=== PATIENT | female | born 1975 | race Caucasian/White ===

== ENCOUNTER → 2016-08-30 | Outpatient (CLI) | payer OTHER | LOC: FIMAGING 19:19 | PROVIDERS: ATTEND Family Medicine | DX: H57.02 Anisocoria (principal); R51 Headache ==

== ENCOUNTER → 2016-10-14 | Outpatient (CLI) | payer OTHER ==
[~2016-10-14] MED LIST: LIDOCAINE 1% 30 ML SDV ONE; NA BICARBONATE 50 MEQ/50 ML VIAL ONE
[2016-10-14 13:41] LABS: PROTEIN, CSF 24 mg/dL (12-60)
[2016-10-14 13:46] LABS: CSF APPEARANCE CLEAR (CLEAR); CSF COLOR COLORLESS (COLORLESS); WBC, CSF 0 /mm3 (0-5)
== END ==
LOC: FIMAGING 10:55
PROVIDERS: ATTEND Internal Medicine Infectious Disease
PROC: 009U3ZX Drainage of Spinal Canal, Percutaneous Approach, Diagnostic (ICD-10-PCS; principal; 2016-10-14)
DX: R51 Headache (principal)

== ENCOUNTER → 2017-01-12 | Outpatient (CLI) | payer OTHER | LOC: CIMAGING 14:14 | PROVIDERS: ATTEND Family Medicine | DX: S91.332A Puncture wound without foreign body, left foot, initial encounter (principal) | CPT/HCPCS: 73630-PO ==

== ENCOUNTER → 2017-01-25 | Outpatient (CLI) | payer OTHER | LOC: CIMAGING 14:40 | PROVIDERS: ATTEND Orthopaedic Surgery | DX: S90.852D Superficial foreign body, left foot, subsequent encounter (principal) | CPT/HCPCS: 76882-PO ==

== ENCOUNTER 2017-11-14 20:53 | Emergency (ER) | payer OTHER ==
--- NOTE | 2017-11-14 21:40 | EDPHY ---
H & P Stated Complaint: LLQ pain for 3 days Time Seen by Provider: 11/14/17 21:09 HPI/ROS: 42-year-old female presents complaining of left lower quadrant pain/left adnexal pain sharp and stabbing in nature for approximately 3 days. She denies nausea, vomiting, diarrhea, fevers, chills, constipation. Her menses began this morning, light flow. She states over the last several months her menses has been irregular she believes she would be due for her period in about 1 week, she denies having cramps on a regular basis with her menses. She states this feels similar to when she had a hemorrhagic ovarian cyst that required laparoscopic surgery in the past. Prior abdominal surgery-appendectomy Review of systems As per HPI General no fever no chills no weakness HEENT no eye pain no eye discharge. No eye redness, no sore throat Respiratory no cough, no shortness of breath Cardiac no chest pain, no peripheral edema GI positive adnexal/abdominal left lower quadrant pain , no diarrhea, no constipation, no nausea, no vomiting no flank pain, no hematuria, no dysuria Musculoskeletal no myalgias, no joint pain Heme no easy bruising, no easy bleeding Endo no polyuria, no polydipsia Skin no rashes, no pruritus Neuro no syncope, no dizziness, no headaches Psych is no suicidal ideation, no homicidal ideation Source: Patient Exam Limitations: No limitations - Personal History LMP (Females 10-55): Now Current Tetanus Diphtheria and Acellular Pertussis (TDAP): Yes Tetanus Vaccine Date: 2016 - Medical/Surgical History Hx Asthma: No Hx Chronic Respiratory Disease: No Hx Diabetes: No Hx Cardiac Disease: No Hx Renal Disease: No Hx Cirrhosis: No Hx Alcoholism: No Hx HIV/AIDS: No Hx Splenectomy or Spleen Trauma: No Other PMH: neck surgery,ruptured ovarian cyst,appy - Family History Significant Family History: No pertinent family hx - Social History Smoking Status: Never smoked Alcohol Use: None Drug Use: None - Physical Exam Exam: 42-year-old female alert and oriented no acute distress nontoxic appearance, afebrile HEENT atraumatic normocephalic, extraocular muscles intact, anicteric Oropharynx negative for erythema negative exudate, tolerating her own secretions Neck supple no meningismus Lungs clear to auscultation bilaterally Heart regular rate and rhythm without murmur rub or gallop Abdomen nondistended normoactive bowel sounds , positive left lower quadrant and left adnexal tenderness No rebound, no guarding Back no CVA tenderness, no step-offs, no spinal tenderness Extremities no cyanosis clubbing or edema Neuro alert and oriented, no focal deficits Constitutional: Initial Vital Signs Temperature (C) 36.7 C 11/14/17 21:18 Heart Rate 71 11/14/17 21:18 Respiratory Rate 16 11/14/17 21:18 Blood Pressure 129/70 H 11/14/17 21:18 O2 Sat (%) 98 11/14/17 21:18 O2 Delivery Mode Room Air Allergies/Adverse Reactions: Penicillins Allergy (Verified 11/14/17 22:00) Home Medications: Medication Instructions Recorded Docusate Sodium [Colace 100 MG (*)] 100 mg PO BID #30 cap 11/14/17 oxyCODONE/APAP 5/325 [Percocet 1 - 2 tab PO Q8H PRN #12 tab 11/14/17 5/325 (*)] Medical Decision Making ED Course/Re-evaluation: Patient seen and evaluated for left abdominal/pelvic pain of approximately 3 days duration, intermittent in nature. Additionally her menses began today. Exam significant for localized tenderness in the left adnexal area. Labs CBC normal CMP wnl Beta-hCG neg Urinalysis neg for infctn Pelvic ultrasound ovarian cyst, no torsion Imp Left adnexal pain, secondary to ovarian cyst Plan Home Short term pain medication Follow up with gynecology or pcp Differential Diagnosis: Differential diagnosis considered but not limited to and in no particular: Urinary tract infection, pelvic inflammatory disease, endometriosis, ovarian cyst, ovarian torsion, tubo-ovarian abscess, dysmenorrhea - Data Points Laboratory Results: Laboratory Results 11/14/17 21:55 11/14/17 21:55 Medications Given: Discontinued Medications Sodium Chloride (Ns) 1,000 mls @ 0 mls/hr IV ONCE ONE PRN Reason: Wide Open Stop: 11/14/17 21:51 Last Admin: 11/14/17 22:08 Dose: 1,000 mls Ketorolac Tromethamine (Toradol) 30 mg IVP ONCE ONE Stop: 11/14/17 21:51 Last Admin: 11/14/17 22:07 Dose: 30 mg Morphine Sulfate (Morphine) 4 mg IVP EDNOW ONE Stop: 11/14/17 23:22 Last Admin: 11/14/17 23:30 Dose: 4 mg Oxycodone/Acetaminophen (Percocet 5/325mg Prepack#4) 1 btl TAKEHOME EDNOW ONE Stop: 11/14/17 23:34 Last Admin: 11/14/17 23:44 Dose: 1 btl Departure - Departure Disposition: Home, Routine, Self-Care Clinical Impression: Ovarian cyst Condition: Good Instructions: Ovarian Cyst (ED) Additional Instructions: Follow up with your clothes model if you continue to have pain Narcotics can cause constipation , be sure to drink plenty of fluids, eat fiber and consider a stool softener. Referrals: Betsy Rose [Primary Care Provider] - As per Instructions Prescriptions: Docusate Sodium [Colace 100 MG (*)] 100 mg PO BID #30 cap oxyCODONE/APAP 5/325 [Percocet 5/325 (*)] 1 - 2 tab PO Q8H PRN #12 tab PRN Reason: Pain, Severe
[2017-11-14] MEDS ORDERED: NS 1,000 ML IV ONE (21:50)
[2017-11-14] MEDS ORDERED: KETOROLAC 30 MG/1 ML SDV IVP ONE (21:50)
[2017-11-14 22:01] LABS: PLATELET COUNT 209 10^3/uL (150-400)
[2017-11-14] MEDS ORDERED: OXYCODONE/APAP 5/325MG PREPACK#4 BTL TAKEHOME ONE (23:33)
[2017-11-15] VITALS: BP 115/76
== END 2017-11-14 23:58 | disposition home or self-care (01) ==
LOC: CED 20:53
DX: N83.202 Unspecified ovarian cyst, left side (principal)
CPT/HCPCS: 76856-PO; 80053-PO; 81003-PO; 81015-PO; 84703-PO; 85025-PO; 96374; J1885; J2270

== ENCOUNTER 2017-12-24 14:49 | Emergency (ER) | payer OTHER ==
[2017-12-24] MEDS ORDERED: ONDANSETRON 4 MG/2 ML VIAL ONE (15:00)
[2017-12-24] MEDS ORDERED: HYDROmorphONE/DILAUDID 1 MG/ML INJ ONE (15:05)
[2017-12-24] MEDS ORDERED: KETOROLAC 15 MG/1 ML SDV ONE (15:06)
[2017-12-24] MEDS ORDERED: KETOROLAC 30 MG/1 ML SDV IVP ONE (15:10)
[2017-12-24] MEDS ORDERED: NS 1,000 ML IV ONE ×2 (15:10→15:38)
[2017-12-24] MEDS ORDERED: HYDROmorphONE/DILAUDID 2 MG/ML INJ IVP ONE ×2 (15:10→16:30)
[2017-12-24] MEDS ORDERED: ONDANSETRON 4 MG/2 ML VIAL IVP ONE (15:19)
--- NOTE | 2017-12-24 15:22 | EDPHY ---
H & P Stated Complaint: r sided flank pain since this am Time Seen by Provider: 12/24/17 15:09 HPI/ROS: This patient reports onset of belly pain this morning that is described as initially achy pain followed by abrupt sharp pain with onset of radiation to the right flank. The patient is noted to be moving around trying to find a more comfortable position on arrival and continues that during the interview. She reports is the worst pain she has ever had-severe intensity with no exacerbating or alleviating factors. She felt well prior to the onset of the pain this morning. ROS: Constitutional: No fevers. She has no some diaphoresis. HEENT: No complaints new line pulmonary: No cough shortness of breath Cardiovascular: No chest pain or lightheadedness GI: No upper belly pain. She has had nausea and vomiting since the onset of the pain that she attributes to the pain. : No hematuria. Her last menstrual period was normal timing 2 weeks ago. Integumentary: Diaphoresis as above. Otherwise no complaints no rash Endocrine: No complaints 10 point ROS is otherwise negative Source: Patient Exam Limitations: No limitations - Personal History Tetanus Vaccine Date: 2016 - Medical/Surgical History Hx Asthma: No Hx Chronic Respiratory Disease: No Hx Diabetes: No Hx Cardiac Disease: No Hx Renal Disease: No Hx Cirrhosis: No Hx Alcoholism: No Hx HIV/AIDS: No Hx Splenectomy or Spleen Trauma: No Other PMH: neck surgery,ruptured ovarian cyst,appy - Family History Significant Family History: No pertinent family hx - Social History Smoking Status: Never smoked Alcohol Use: Rarely Drug Use: None - Physical Exam Exam: General Appearance: Moderate distress due to pain. Patient is moving about on the cart trying to get more comfortable standing up and sitting down. Eyes: Pupils equal and round no pallor or injection. ENT, Mouth: Mucous membranes moist. Respiratory: There are no retractions, lungs are clear to auscultation. Cardiovascular: Regular rate and rhythm. No murmur gallop or rub Gastrointestinal: Moderate right lower quadrant tenderness with no guarding or rebound. Back: Positive right CVA tenderness-mild Neurological: GCS 15 with no focal deficits. Skin: Warm and dry, no rashes. Musculoskeletal: Neck is supple nontender. Extremities are symmetrical, full range of motion. Psychiatric: Patient is anxious. Mood and affect are otherwise normal DIFFERENTIAL DIAGNOSIS: After history and physical exam differential diagnosis was considered for renal colic/ureteral stone, pyelonephritis, ectopic , ruptured viscus, bowel obstruction Constitutional: Initial Vital Signs Temperature (C) 36.4 C 12/24/17 14:52 Heart Rate 76 12/24/17 14:52 Respiratory Rate 16 12/24/17 14:52 Blood Pressure 135/65 H 12/24/17 14:52 O2 Sat (%) 99 12/24/17 14:52 O2 Delivery Mode Room Air Allergies/Adverse Reactions: Penicillins Allergy (Verified 12/24/17 15:25) Sulfa (Sulfonamide Antibiotics) Allergy (Verified 12/24/17 15:25) Home Medications: Medication Instructions Recorded Tamsulosin HCl [Flomax 0.4 MG (*)] 0.4 mg PO DAILY #10 cap 12/24/17 traMADol [Ultram 50 mg (*)] 50 - 100 mg PO Q4 PRN #20 tab 12/24/17 Medical Decision Making Procedures: Procedure: Renal ultrasound. Limited bedside ultrasound was performed and interpreted by myself for the indication of: Right renal colic with hematuria The right kidney is visualized appears consistent with dilated calices consistent with hydronephrosis by my interpretation The left kidney is visualized and appears normal by my interpretation. The patient tolerated this procedure well with no complications. ED Course/Re-evaluation: IV normal saline bolus Zofran 4 mg IV with resolution of nausea 1 mg of Dilaudid and 15 mg of Toradol IV Studies: CBC reveals mild leukocytosis with white count of 11. Normal H&H and platelets. Basic metabolic panel normal except for a potassium 3.2. Urine dip reveals 3+ blood. Otherwise normal except for trace leuks Discussion: Patient presents with abrupt onset of right flank pain colicky in nature associated with nausea vomiting hematuria and a point of care ultrasound appears consistent with hydronephrosis. Findings are most consistent with ureteral colic. I counseled this patient regarding this. She is improved after analgesics and fluids here. She understands treatment plan of filter your urine, Flomax analgesics ibuprofen and follow up with Urology if she has not passed the stone the next few days. She understands need to return to the emergency department should she develop worsening symptoms despite the treatment plan. - Data Points Laboratory Results: 12/24/17 15:10 POC Sodium 141 mEq/L mEq/L (135-145) POC Potassium 3.2 mEq/L L mEq/L (3.3-5.0) POC Chloride 107.0 mEq/L mEq/L (97-110) POC Total CO2 24 mEq/L mEq/L (22-31) POC BUN 8 mg/dL mg/dL (7-23) POC Creatinine 0.8 mg/dL mg/dL (0.6-1.0) POC Glucose 140 mg/dL H mg/dL (70-100) POC Calcium 8.7 mg/dL mg/dL (8.5-10.4) Medications Given: Discontinued Medications Hydromorphone HCl (Dilaudid) 1 mg IVP EDNOW ONE Stop: 12/24/17 15:11 Last Admin: 12/24/17 15:15 Dose: 1 mg Hydromorphone HCl (Dilaudid) 1 mg IVP EDNOW ONE Stop: 12/24/17 16:31 Last Admin: 12/24/17 16:53 Dose: 1 mg Sodium Chloride (Ns) 1,000 mls @ 0 mls/hr IV EDNOW ONE; Wide Open PRN Reason: Protocol Stop: 12/24/17 15:11 Last Admin: 12/24/17 15:10 Dose: 1,000 mls Sodium Chloride (Ns) 1,000 mls @ 0 mls/hr IV ONCE ONE; Wide Open PRN Reason: Protocol Stop: 12/24/17 15:39 Last Admin: 12/24/17 16:00 Dose: 1,000 mls Ketorolac Tromethamine (Toradol) 15 mg IVP EDNOW ONE Stop: 12/24/17 15:11 Last Admin: 12/24/17 15:20 Dose: 15 mg Ketorolac Tromethamine (Toradol) 15 mg IVP EDNOW ONE Stop: 12/24/17 15:34 Last Admin: 12/24/17 15:41 Dose: 15 mg Ondansetron HCl (Zofran) 4 mg IVP EDNOW ONE Stop: 12/24/17 15:20 Last Admin: 12/24/17 15:10 Dose: 4 mg Tamsulosin HCl (Flomax) 0.4 mg PO EDNOW ONE Stop: 12/24/17 16:52 Last Admin: 12/24/17 17:19 Dose: 0.4 mg Point of Care Test Results: CBC CBC Collection Date 12/24/17 CBC Collection Time 15:00 WBC 12.3 RBC 4.83 HGB 15.6 HCT 44.9 PLT 226 Neut # 6.9 Neut 56.5 LYMPH # 4.4 LYMPH 35.7 Other WBC # 1.0 Other WBC 7.8 MCV 93.0 Chemistry 12/24/17 15:10 POC Sodium 141 mEq/L mEq/L (135-145) POC Potassium 3.2 mEq/L L mEq/L (3.3-5.0) POC Chloride 107.0 mEq/L mEq/L (97-110) POC Total CO2 24 mEq/L mEq/L (22-31) POC BUN 8 mg/dL mg/dL (7-23) POC Creatinine 0.8 mg/dL mg/dL (0.6-1.0) POC Glucose 140 mg/dL H mg/dL (70-100) POC Calcium 8.7 mg/dL mg/dL (8.5-10.4) Urine Collection Date 12/24/17 Collection Time 15:50 HCG Results Negative Urine Dip Collection Date 12/24/17 Collection Time 15:45 Specific [place] (1.002-1.030) 1.015 PH (5.0-7.5) 8.5 Leukocytes (Negative) Trace Nitrites (Negative) Negative Protein (Negative) Negative Glucose (Negative) Negative Ketones (Negative) Negative Urobilnogen (0.2-1.0 EU) 1.0 Bilirubin (Negative) Negative Blood (Negative) 3+ Departure - Departure Disposition: Home, Routine, Self-Care Clinical Impression: Right ureteral stone Vomiting Qualifiers: Vomiting type: unspecified Vomiting Intractability: non-intractable Nausea presence: with nausea Qualified Code(s): R11.2 - Nausea with vomiting, unspecified Condition: Good Instructions: Ureteral Stones (ED) Additional Instructions: Diagnosis: Right ureteral stone 2. Vomiting Plan: Drink plenty fluids Ibuprofen for pain Tramadol in addition if needed for pain Zofran if needed for nausea vomiting Flomax daily until you passed the stone. Filter urine until he passed a stone Follow up with Dr. Lilia rock-urologist if you are not passing the stone over the next few days. Return emergency department for any significant worsening despite the treatment plan. Referrals: Betsy Rose [Primary Care Provider] - As per Instructions Marlo Saravia MD [Medical Doctor] - As per Instructions Prescriptions: Tamsulosin HCl [Flomax 0.4 MG (*)] 0.4 mg PO DAILY #10 cap traMADol [Ultram 50 mg (*)] 50 - 100 mg PO Q4 PRN #20 tab PRN Reason: breakthrough pain
[2017-12-24] MEDS ORDERED: KETOROLAC 15 MG/1 ML SDV IVP ONE (15:33)
[2017-12-24] MEDS ORDERED: TAMSULOSIN HCL 0.4 MG CAP PO ONE (16:51)
[2017-12-24 18:26] VITALS: BP 108/64
== END 2017-12-24 17:30 | disposition home or self-care (01) ==
LOC: CED 14:49
DX: N20.1 Calculus of ureter (principal); E86.9 Volume depletion, unspecified
CPT/HCPCS: 80048-PO; 96374; J1170; J1885; J2405

== ENCOUNTER 2018-01-01 12:31 | Day surgery (SDC) | payer OTHER ==
[2018-01-01] MEDS ORDERED: LR 1,000 ML IV ONE (12:52)
[2018-01-01] MEDS ORDERED: LIDOCAINE 1% 2 ML INJ ID PRN (12:52)
[2018-01-01] MEDS ORDERED: levOFLOXACIN 500 MG/DEXTROSE 100 ML IV ONE (12:52)
[2018-01-01] MEDS ORDERED: IOPAMIDOL (ISOVUE-M 300) 15 ML VIAL ONE ×2 (13:46)
[2018-01-01] MEDS ORDERED: LIDOCAINE 2% JELLY 20 ML (UROJECT) ONE (13:46)
[2018-01-01] MEDS ORDERED: MIDAZOLAM 2 MG/2 ML VIAL IVP ONE (14:07)
--- NOTE | 2018-01-01 14:07 | PDHPUP ---
History & Physical Update H&P update statement: This history and physical update is based on an assessment of the patient which was completed after admission or registration (within 24 hours), but prior to the surgery/procedure. H&P update: no change in patient's condition since H&P completed
--- NOTE | 2018-01-01 14:07 | POSTOPPROG ---
Post Op Note Date of Operation: 01/01/18 Surgeon: Marlo Saravia (# [id number]) Anesthesia: LMA Pre-op Diagnosis: Left ureterolithiasis Post-op Diagnosis: Left proximal ureterolithiasis Procedure: Left ureteroscopy w/ laser lithotripsy & stent placement, RGP Findings: See op note Inf/Abcess present in the surg proc area at time of surgery?: No EBL: Minimal Complications: None Drains: Other (4.7 Fr. variable length left ureteral stent) Specimen(s): None
--- NOTE | 2018-01-01 14:09 | PDANEPAE ---
ANE History of Present Illness Patient presents for kidney stone extraction ANE Past Medical History - Pulmonary History Hx Sleep Apnea: Yes - Endocrine History Hx Diabetes: No ANE Review of Systems Review of Systems: ANE Patient History - Allergies Allergies/Adverse Reactions: Penicillins Allergy (Verified 12/24/17 15:25) Sulfa (Sulfonamide Antibiotics) Allergy (Verified 12/24/17 15:25) - Home Medications Home medications: home medication list seen and reviewed Home Medications: Uribel Capsule 01/01/18 [Last Taken 12/31/17] - NPO status NPO Status: no food or drink >8 hours NPO Since - Liquids (Date): 01/01/18 NPO Since - Liquids (Time): 07:00 NPO Since - Solids (Date): 12/31/17 NPO Since - Solids (Time): 19:00 - Anes Hx Anes Hx: no prior problems - Smoking Hx Smoking Status: Never smoked ANE Labs/Vital Signs - Vital Signs Blood Pressure: 119/68 Heart Rate: 77 Respiratory Rate: 18 O2 Sat (%): 95 ANE Physical Exam - Airway Neck exam: decreased ROM Mouth exam: normal dental/mouth exam - Pulmonary Pulmonary: no respiratory distress - Cardiovascular Cardiovascular: regular rate and rhythym - ASA Status ASA Status: II ANE Anesthesia Plan Anesthesia Plan: general endotracheal anesthesia (rba discussed)
[2018-01-01] MEDS ORDERED: LIDOCAINE 2% 5 ML SDV ONE (14:10)
[2018-01-01] MEDS ORDERED: fentaNYL 100 MCG/2 ML INJ ONE (14:10)
[2018-01-01] MEDS ORDERED: SUCCINYLCHOLINE CHLORIDE 200 MG/10 ML SYR IVP ONE (14:10)
[2018-01-01] MEDS ORDERED: PROPOFOL 200 MG/20 ML VIAL ONE ×2 (14:10→14:32)
[2018-01-01] MEDS ORDERED: ROCURONIUM 50 MG/5 ML VIAL ONE (14:32)
[2018-01-01] MEDS ORDERED: ONDANSETRON 4 MG/2 ML VIAL ONE (14:43)
[2018-01-01] MEDS ORDERED: DEXAMETHASONE 4 MG/ML VIAL ONE (14:43)
[2018-01-01] MEDS ORDERED: LR 500 ML IV PRN (14:54)
[2018-01-01] MEDS ORDERED: fentaNYL 100 MCG/2 ML INJ IVP PRN (14:54)
[2018-01-01] MEDS ORDERED: ONDANSETRON 4 MG/2 ML VIAL IVP PRN (14:54)
[2018-01-01] MEDS ORDERED: oxyCODONE IR 5 MG TAB PO PRN (14:54)
[2018-01-01] MEDS ORDERED: NALOXONE HCL 0.4 MG/ML INJ IVP PRN (14:54)
[2018-01-01] MEDS ORDERED: HYDROCODONE/APAP 5/325 TAB PO PRN (14:54)
[2018-01-01] MEDS ORDERED: KETOROLAC 30 MG/1 ML SDV ONE (15:10)
[2018-01-01] MEDS ORDERED: GLYCOPYRROLATE 0.2 MG/1 ML VIAL ONE ×3 (15:10)
[2018-01-01] MEDS ORDERED: NEOSTIGMINE METHYLSULFATE 3 MG/3 ML SYR ONE (15:11)
--- NOTE | 2018-01-01 15:30 | POSTANESTH ---
Post Anesthetic Evaluation Cardiovascular Status: Similar to Pre-Op Cond Respiratory Status: Similar to Pre-op Cond. Level of Consciousness/Mental Status: Alert and Oriented Pain Control: Adequate, Prn Tx Ordered Nausea/Vomiting Control: Adequate, Prn Tx Ordered Complications Possibly Related to Anesthesia: None Noted
--- NOTE | 2018-01-01 15:55 | GOP ---
[f rep st] OPERATIVE REPORT DATE OF OPERATION: 01/01/2018 SURGEON: Marlo Saravia MD ANESTHESIA: Laryngeal mask. PREOPERATIVE DIAGNOSIS: Symptomatic left proximal ureteral calculus. POSTOPERATIVE DIAGNOSIS: Symptomatic left proximal ureteral calculus. PROCEDURE PERFORMED: 1. Cystourethroscopy, left retrograde pyelography. 2. Left ureteroscopy with holmium laser calculus with lithotripsy. 3. Left ureteral stent placement (4.7-Eritrean variable length). FINDINGS: Extensive mucosal inflammation and erythema with evidence of ureteral calculus impaction at approximately L5. No remaining stone fragments were noted to be embedded within the ureteral wall/mucosa at the conclusion of the case. SPECIMENS: None. ESTIMATED BLOOD LOSS: Minimal. INDICATIONS: This woman presented to the office recently with symptoms related to a left-sided ureteral calculus that was seen on CT scan imaging. She has been unable to pass the stone spontaneously. Operative intervention was recommended. The indications for the procedures as well as potential risks and complications were discussed with the patient preoperatively. She appeared to understand, her questions were answered, and she wished to proceed. Written informed surgical consent was thereafter obtained. DESCRIPTION OF PROCEDURE: The patient was brought to the operating room and administered laryngeal mask anesthesia. She was carefully placed in the dorsal lithotomy position on the cystoscopic table. The genital area was sterilely prepped with Betadine scrub and paint then draped in usual sterile fashion. Cystoscopy was performed with the 30-degree lens through a 22-Eritrean sheath. Urethra and bladder were unremarkable. Ureteral orifices were normal in regards to shape and position along the trigone. A 5-Eritrean open-ended ureteral catheter was used to perform retrograde pyelography on the left side. This revealed a filling defect, along with stasis of urine, at about L5. I did have some difficulties getting contrast to advance proximal to this location. This was the perceived location of the calculus at this point, and this also corresponded with the location of the calculus seen on preoperative imaging. I then advanced a 0.035 inch angle-tipped hydrophilic guidewire up the left ureter with the aid of a 5-Eritrean open-ended ureteral catheter, and was able to advance it into the renal collecting system with significant resistance noted at about L5, at the location where the calculus was probably located. I then used a 10 cm balloon to dilate the entire length of the ureter distal to the calculus. This required 1 inflation of the balloon to 16 atmospheres and it was maintained at this pressure for approximately 3 minutes. The balloon dilator and cystoscope were then removed while keeping the guidewire in place. Semi-rigid ureteroscopy was performed alongside the guidewire. The calculus was seen in the proximal ureter at about the level of L5. There was extensive mucosal inflammation and erythema, consistent with the probable longstanding presence of a calculus impacted in the ureter at this location. I used a 365 micron holmium laser fiber to carefully fragment the calculus into minute pieces which were then passed into the distal ureter and out into the bladder. These fragments were extremely small, essentially consistent with sand, and could not be retrieved for analysis. The ureteroscope was advanced further proximally and no other abnormalities were seen, other than dilation of the ureter. Contrast was injected through the ureteroscope and the renal collecting system was noted to be dilated but otherwise unremarkable. The guidewire was confirmed to be in proper position in the collecting system. I removed the ureteroscope and back-loaded the cystoscope over the guidewire. A 4.7-Eritrean variable length hydrophilic ureteral stent was advanced over the guidewire until it was properly positioned as seen fluoroscopically in the kidney and cystoscopically in the bladder. The bladder was then drained of all return which was relatively clear. The instruments were removed and 20 cc of 2 % lidocaine injected transurethrally for postoperative analgesic purposes. The patient was also given Toradol 30 mg IV by Anesthesia at the conclusion of the case for postoperative analgesia as well. The patient was then awakened, transferred to her bed, then taken to the recovery room. She tolerated the procedure well overall. COMPLICATIONS: None. DISPOSITION: She was transferred to the recovery room in stable condition and will be instructed to return to my office in 2-3 weeks for ureteral stent removal. She will then need repeat imaging approximately 1 month later to ensure that she does not have residual hydronephrosis. /[id number]/MODL MTDD
[2018-01-01] MEDS ORDERED: PHENAZOPYRIDINE HCL 200 MG TAB PO ONE (16:00)
[2018-01-01 16:15] VITALS: BP 117/67
[2018-01-01] MEDS ORDERED: CEPACOL LOZENGE PO ONE (16:30)
--- NOTE | 2018-01-09 12:51 | SOAPPROG ---
SOAP Progress Note Assessment/Plan: Assessment: Regarding post operative course for Ms. Ramirez. Ms. Ramirez underwent an uneventful ureteral stone extraction procedure 01/01/18. She was intubated with an endotracheal tube and for the procedure and extubated in the OR-see anesthesia record from 01/02/12. In the PACU Ms. Ramirez complained of a "sore throat." The patient was prescribed Cepacol lozenges and discharged home from the PACU. The following day the patient contacted me regarding a persistent sore throat associated with difficulty swallowing. She later went to the ED for evaluation of sore throat associated with "hoarseness" and difficulty swallowing. The patient was evaluated Dr. Goel-(see note from 01/02/18) and was discharged home from the ED with a diagnosis of uvula swelling. Later in the week (01/04/18) the patient contacted me to inquire about the next step given her continued sore throat with difficulty swallowing and being on the 3rd of a 3 day steroid course. I advocated patience and symptomatic treatment. I asked to patient to "keep me posted" on her condition. Yesterday I inquired of the patient if she was feeling better. She told me that she had gone to an ENT on 01/12/18 who diagnosed her with Uvula necrosis and prescribed more steroids and anti-inflammatories. I attempted to call the patient to see how she's feeling but was unable to reach the patient and so I left a message asking her to call me when she is available. Again during the day on 01/09 I attempted to contact the patient via text message and asked her to call me when she is available. Plan: 01/09/18 12:38 01/10/18 14:22 I was able to speak with patient last evening 01/09. She reports doing better. Her voice was clear and swallowing was reported as "getting back to normal." She had seen an ENT in [place] on Monday01/05/18 and was scheduled for a followup appointment if necessary on 01/12/18. Objective: Vital Signs Temp Pulse Resp BP Pulse Ox 36.3 C 74 17 117/67 97 01/01/18 15:58 01/01/18 15:58 01/01/18 16:02 01/01/18 16:12 01/01/18 16:15 ICD10 Worksheet Patient Problems: Problems Problem Status Onset Post-operative complication Acute - ICD10 Problem Qualifiers (1) Post-operative complication Qualifiers: Encounter type: sequela
== END 2018-01-01 16:56 | disposition home or self-care (01) ==
LOC: FSGY 12:31
PROVIDERS: ATTEND Specialist
PROC: 0T774DZ Dilation of Left Ureter with Intraluminal Device, Percutaneous Endoscopic Approach (ICD-10-PCS; principal; 2018-01-01 14:00)
PROC: 0TF78ZZ Fragmentation in Left Ureter, Via Natural or Artificial Opening Endoscopic (ICD-10-PCS; principal; 2018-01-01 14:00)
DX: N13.2 Hydronephrosis with renal and ureteral calculous obstruction (principal)
CPT/HCPCS: 52356; 76001; C1726; C1758; C2625; J0330; J1100; J1885; J1956; J2405; J2704; J2710; J3010; Q9967

== ENCOUNTER 2018-01-02 14:36 | Emergency (ER) | payer OTHER ==
[2018-01-02] MEDS ORDERED: NS 1,000 ML IV ONE ×2 (15:15)
[2018-01-02] MEDS ORDERED: DEXAMETHASONE 10 MG/ML VIAL IVP ONE (15:15)
--- NOTE | 2018-01-02 15:26 | EDPHY ---
H & P Time Seen by Provider: 01/02/18 15:05 HPI/ROS: CHIEF COMPLAINT: Sore throat HISTORY OF PRESENT ILLNESS: Patient had anesthesia with endotracheal tube yesterday for a kidney stone procedure. Since then she has had throat pain feels like it is"on fire"does not radiate and today was associated with decreased ability to eat or drink and her uvula feeling swollen and caught on her tongue for the last 2 hr. No stridor difficulty breathing. She does cough when she feels uvula swollen. She does not have urticaria or significant abdominal pain or vomiting at this time REVIEW OF SYSTEMS: Eye: no change in vision ENT: HPI Cardiac: no chest pain or syncope Pulmonary: no cough or SOB Abdomen: no vomiting, diarrhea, abdominal pain Musculoskeletal: no back pain Skin: no rash Neuro: no headache Constitutional: no fever : no urinary symptoms A comprehensive 10 point review of systems is otherwise negative aside from elements mentioned in the history of present illness. PAST MEDICAL HISTORY: Kidney stone surgery as above, ovarian cyst, appendectomy , neck surgery cervical fusion Social history: Nonsmoker General Appearance: Alert and conversant, cooperative. Eyes: No scleral icterus. ENT, Mouth: No trismus, no stridor or drooling. Uvula is slightly swollen, has a couple of scratches on it. The it is midline, there is no exudate in the pharynx or erythema. No other angioedema in the mouth. Respiratory: Normal respiratory effort, breath sounds equal, lungs are clear to auscultation. No wheezing. Normal voice. Cardiovascular: Regular rate and rhythm. Gastrointestinal: Abdomen is soft and non tender. Neurological: Alert, face symmetric, normal motor and sensory in extremities. Skin: Slight red rash in left forearm her IV was taped down. No urticaria. Musculoskeletal: No peripheral edema. Psychiatric: Not agitated. Emergency Department course/MDM: Likely uvular swelling from endotracheal intubation with general anesthesia yesterday. Normal saline IV 2 L, dexamethasone 10 mg IV. 1622: Stable, normal voice. Discharge with short course of oral dexamethasone. At this point I do not think she has high risk of acute airway obstruction or compromise. Smoking Status: Never smoked Constitutional: Initial Vital Signs Temperature (C) 36.5 C 01/02/18 14:40 Heart Rate 106 H 01/02/18 14:40 Respiratory Rate 18 01/02/18 14:40 Blood Pressure 123/92 H 01/02/18 14:40 O2 Sat (%) 96 01/02/18 14:40 O2 Delivery Mode Room Air Allergies/Adverse Reactions: Penicillins Allergy (Verified 01/02/18 14:38) Sulfa (Sulfonamide Antibiotics) Allergy (Verified 01/02/18 14:38) Home Medications: Medication Instructions Recorded Tamsulosin HCl [Flomax 0.4 MG (*)] 0.4 mg PO DAILY #10 cap 12/24/17 traMADol [Ultram 50 mg (*)] 50 - 100 mg PO Q4 PRN #20 tab 12/24/17 Uribel Capsule 01/01/18 Dexamethasone [Decadron 4 MG (*)] 4 mg PO Q12 #6 tab 01/02/18 Medical Decision Making Differential Diagnosis: Differential considered including but not limited to pharyngeal infection, angioedema, deep space neck infection, trauma from intubation - Data Points Medications Given: Discontinued Medications Dexamethasone (Decadron Injection) 10 mg IVP EDNOW ONE Stop: 01/02/18 15:16 Last Admin: 01/02/18 15:31 Dose: 10 mg Sodium Chloride (Ns) 1,000 mls @ 0 mls/hr IV ONCE ONE; Wide Open PRN Reason: Protocol Stop: 01/02/18 15:16 Last Admin: 01/02/18 15:31 Dose: 1,000 mls Sodium Chloride (Ns) 1,000 mls @ 0 mls/hr IV EDNOW ONE; Wide Open PRN Reason: Protocol Stop: 01/02/18 15:16 Last Admin: 01/02/18 15:36 Dose: 1,000 mls Departure - Departure Disposition: Home, Routine, Self-Care Clinical Impression: Uvular edema Condition: Good Instructions: Uvulitis (ED) Referrals: Betsy Rose [Primary Care Provider] - As per Instructions Prescriptions: Dexamethasone [Decadron 4 MG (*)] 4 mg PO Q12 #6 tab
[2018-01-02 16:44] VITALS: BP 117/74
== END 2018-01-02 17:33 | disposition home or self-care (01) ==
DX: K13.79 Other lesions of oral mucosa (principal); E86.9 Volume depletion, unspecified
CPT/HCPCS: 96374; J1100